=== PATIENT | female | born 1940 | race Caucasian/White ===

== ENCOUNTER 2016-10-06 17:25 | Observation (INO) | payer MEDICARE, MEDICAID ==
[2016-10-06 19:47] LABS: ABSOLUTE NEUTROPHIL COUNT 4.9 K/mm3 (1.8-7.7); BASO # 0.1 K/mm3 (0.0-0.2); BASO % 0.8 % (0.2-1.0); EOS # 0.2 (0.0-0.5); HEMATOCRIT 38.4 % (37.0-47.0); HEMOGLOBIN 11.8 gm/l (12.0-16.0); IMM NEUT% 0.3 % (0-1); LYMPH # 1.8 (1.0-4.8); LYMPH % 23.6 % (15-45); MEAN CELL VOLUME 92.3 fl (81.0-99.0); MEAN CORPUSCULAR HEMOGLOBIN 28.4 pg (27.0-31.0); MEAN CORPUSCULAR HGB CONC 30.7 g/dl (33.0-37.0); MEAN PLATELET VOLUME 9.3 fl (7.4-10.4); MONO # 0.6 (0.0-0.8); MONO % 7.8 % (4-12); NEUT % 64.5 % (43-75); PLATELET COUNT 259 K/mm3 (130-400); RED CELL DISTRIBUTION WIDTH 13.8 % (11.5-14.5)
[2016-10-06 19:57] LABS: ALB/GLOB RATIO 0.8 (>1.0); CALCIUM 10.4 mg/dL (8.6-10.3)
[2016-10-06 20:10] LABS: TROPONIN I 0.02 ng/ml (0.0-0.06)
[2016-10-06 20:14] LABS: CKMB ISOENZYME 0.9 ng/ml (0.6-6.3)
[2016-10-06] MEDS ORDERED: FUROSEMIDE 40 MG/4 ML VIAL ONE (21:06)
[2016-10-06] MEDS ORDERED: ACETAMINOPHEN 325 MG TABLET PO ONE (23:21)
[2016-10-06 23:24] VITALS: BMI 38.0
[2016-10-06] MEDS ORDERED: BISACODYL 5 MG TABLET.EC PO PRN (23:32)
[2016-10-06] MEDS ORDERED: BLISTEX LIPSTICK 1 EACH TP PRN (23:32)
[2016-10-06] MEDS ORDERED: MENTHOL/CETYLPYRD 1 EACH LOZENGE PO PRN (23:32)
[2016-10-06] MEDS ORDERED: SODIUM CHLORIDE 0.9% 100 ML IV PRN (23:32)
[2016-10-06] MEDS ORDERED: ACETAMINOPHEN 325 MG TABLET PO PRN (23:32)
[2016-10-06] MEDS ORDERED: MAGNESIUM HYDROXIDE 30 ML UDCUP PO PRN (23:32)
[2016-10-06] MEDS ORDERED: BISACODYL 10 MG SUP PR PRN (23:32)
[2016-10-06] MEDS ORDERED: RANITIDINE HCL 300 MG PO SCH (23:45)
[2016-10-06] MEDS ORDERED: ACETAMINOPHEN PO PRN (23:45)
[2016-10-06] MEDS ORDERED: HYDROCODONE PO PRN (23:45)
[2016-10-06] MEDS ORDERED: CLONAZEPAM 1 MG TABLET PO SCH (23:45)
[2016-10-07] MEDS ORDERED: HYDROCODONE/ACETAMINOPHEN 5/325MG TABLET PO PRN (00:16)
[2016-10-07] MEDS ORDERED: FAMOTIDINE 20 MG TABLET PO SCH (00:30)
[2016-10-07] MEDS: NYSTATIN CREAM 15 APPLIC/15 G TUBE TP SCH ×2 (00:33→11:24)
[2016-10-07] MEDS: GABAPENTIN 300 MG CAPSULE PO SCH ×2 (00:53→09:05)
[2016-10-07] MEDS: METOPROLOL TARTRATE 25 MG TABLET PO SCH ×2 (00:53→09:08)
[2016-10-07 06:31] LABS: HEMATOCRIT 38.2 % (37.0-47.0); HEMOGLOBIN 11.7 gm/l (12.0-16.0); MEAN CORPUSCULAR HEMOGLOBIN 27.9 pg (27.0-31.0); MEAN CORPUSCULAR HGB CONC 30.6 g/dl (33.0-37.0); RED CELL DISTRIBUTION WIDTH 13.7 % (11.5-14.5)
[2016-10-07 06:47] LABS: CALCIUM 8.9 mg/dL (8.6-10.3)
[2016-10-07 08:27] VITALS: BP 127/86
[2016-10-07] MEDS ORDERED: AMIODARONE HCL 200 MG TABLET PO SCH (09:00)
[2016-10-07] MEDS ORDERED: AMIODARONE HCL 200 MG PO SCH (09:00)
[2016-10-07] MEDS ORDERED: PANTOPRAZOLE 40 MG TABLET DR PO SCH (09:00)
[2016-10-07] MEDS ORDERED: POTASSIUM CHLORIDE 20 MEQ TAB.PRT.SR PO SCH (09:00)
[2016-10-07] MEDS ORDERED: ASPIRIN (ENTERIC COATED) 81 MG TABLET.EC PO SCH ×2 (09:00)
[2016-10-07] MEDS ORDERED: FUROSEMIDE 40 MG TABLET PO SCH (09:00)
[2016-10-07] MEDS ORDERED: DOCUSATE SODIUM 100 MG CAPSULE PO SCH (09:00)
[2016-10-07] MEDS ORDERED: OMEPRAZOLE 20 MG CAPSULE.DR PO SCH (09:00)
[2016-10-07] MEDS ORDERED: LISINOPRIL 5 MG TABLET PO SCH (09:00)
--- NOTE | 2016-10-07 09:15 | RAD ---
Exam: Two-view chest COMPARISON: CT 12/19/2015 INDICATION: Wheezing for 2 to 3 weeks with cough and difficulty breathing. FINDINGS: PA and lateral views of the chest were obtained. Cardiac silhouette is within normal limits. There is diffuse coarsening of the bronchovascular markings and mild bibasilar predominant interstitial disease. There is minor blunting of the costophrenic angles concerning for tiny bilateral pleural effusions. There is no focal airspace disease. Old left humerus fracture is seen. IMPRESSION: Diffuse coarsening of bronchovascular markings and mild bibasilar interstitial disease, as well as tiny bilateral pleural effusions. Although heart is not enlarged, findings are most compatible with a mild pulmonary edema. No radiographic evidence of pneumonia.
--- NOTE | 2016-10-07 10:03 | PDOC5 ---
ADMIT DATE: 10/06/16 DISCHARGE DATE: 10/07/16 ADMISSION DIAGNOSES: CHF Discharge Diagnoses: Acute on chronic CHF, Echo from 07/2014 with EF 60%, restrictive diastolic dysfunction, Left to Right shunt through PFO Hypertension CVA Anxiety Polyneuropathy Chronic Pain Paroxysmal Atrial fibrillation PROCEDURES PERFORMED THIS HOSPITALIZATION: none CONSULTATIONS: None HOSPITAL COURSE: This is a 76 year old female who presented tot he emergency department for wheezing which had been progressing for the previous day. She was evaluated and found to have an elevated BNP to 595, oxygen saturations in the low 90's and pedal edema. She was uncomfortable going home and was admitted to the hospital overnight for observation. She was provided with lasix and had relief of her shortness of breath and improvement in the pedal edema the next morning. She tolerated diet and was ambulatory without difficulties. She has an appointment with her PCP on 10/09/2016. - Exam Vital Signs Temperature 98.3 F 10/07/16 08:00 Pulse Rate 66 10/07/16 08:00 Respiratory Rate 20 10/07/16 08:08 Blood Pressure 127/86 10/07/16 08:00 O2 Saturation by Pulse Oximetry 97 10/07/16 08:05 Oxygen Delivery Method Room Air Oxygen Flow Rate 0 General: Alert, Oriented x3, Cooperative, Other (morbidly obese), No Acute Distress HEENT: Atraumatic, PERRLA, EOMI, Mucous membr. moist/pink Lungs: Clear to Auscultation Bilaterally, Normal Air Movement, Other (no crackle or wheeze, improved from overnight) Cardiovascular: Regular Rate and Rhythm, Normal S1, Normal S2 Abdomen: Soft, Mild Distention, No Rigid, No Tenderness, No Rebounding Extremities: Edema, Other (pedal), No Cyanosis, No Tenderness Peripheral Pulses: Radial (L): 2+, Radial (R): 2+, Posterior Tibialis (L): 2+, Posterior Tibialis (R): 2+ Neurological: Normal Speech Psych/Mental Status: Normal Mood - Results Laboratory 10/07/16 05:30 10/07/16 05:30 10/07/16 05:30 MCHC 30.6 L Laboratory Tests 10/06/16 19:10 CK-MB (CK-2) 0.9 Troponin I 0.02 B-Natriuretic Peptide 595 H Imaging Results: Diffuse coarsening of bronchovascular markings, mild bibasilar interstitial disease, tiny B/L pleural effusions. Findings compatible with mild pulmonary edema. No evidence of pneumonia. - Problems:Assessment/Plan (1) CHF exacerbation Qualifiers: Congestive heart failure type: combined Qualifier Code: (I50.43) Acute on chronic combined systolic (congestive) and diastolic (congestive) heart failure Status: Acute Assessment/Plan: acute on chronic, echo from 06/2016 not available. Echo from 07/2014 show restrictive diastolic dysfunction with EF of 60%, PFO with a left-right shunt. Improvement with lasix. (2) Hypertension Qualifiers: Hypertension type: essential hypertension Qualifier Code: (I10) Essential (primary) hypertension Status: Chronic Assessment/Plan: stable (3) Morbid obesity due to excess calories Status: Chronic Assessment/Plan: complicates medical care, may contribute to hypoventilation (4) CVD (cerebrovascular disease) Status: Chronic Assessment/Plan: H/O TIA in June 2016 with symptoms resolved (5) Patent foramen ovale with right to left shunt Status: Chronic Assessment/Plan: may contribute to CHF and symptoms (6) Polyneuropathy Status: Chronic Assessment/Plan: multifactorial including H/O diabetes, peripheral vascular disease (7) Afib Qualifiers: Atrial fibrillation type: paroxysmal Qualifier Code: (I48.0) Paroxysmal atrial fibrillation Status: Chronic Assessment/Plan: NSR currently - Discharge Plan Additional Instructions: Follow-up with Dr. Chang as previously scheduled on Saturday10/09/2016. Ask whether to continue with lasix Prescriptions: Potassium Chloride [K-DUR 20 MEQ SR TAB (SHF)] 20 meq PO DAILY #30 tab.prt.sr Furosemide [LASIX 40 MG TABLET (SHF)] 40 mg PO DAILY #30 tablet Condition: Stable Disposition: Home
--- NOTE | 2016-10-07 10:43 | HP ---
EVERTON ORDOÑEZ [id number] DATE OF : 1940 IDENTIFICATION: This is a 76-year-old female. CHIEF COMPLAINT: Shortness of breath. HISTORY OF PRESENT ILLNESS: Yesterday the patient developed wheezing., and she thought it would get better, but she had increasing shortness of breath overnight and through the day today. She lives with her son and he works nights and sleeps during the day. When he got up today, she told him she was short of breath and she needed to go to the emergency department. In the emergency department, she was found to have low oxygen saturations around 90% and had an elevated BNP indicating some heart failure. Patient is being admitted to the hospital overnight for the slight hypoxia and to help with diuresis. She has noticed increased swelling in her feet. Along with the shortness of breath, she has a cough and some increased swelling in her feet. PAST MEDICAL HISTORY: Includes: 1. Essential hypertension. 2. Anxiety. 3. Gastroesophageal reflux disease. 4. Hyperlipidemia. 5. Irritable bowel. 6. Osteoarthritis pain. 7. Neuropathy. 8. Restless legs. 9. Spinal stenosis of the lumbar spine. 10. She had a recent transient ischemic attack in June with resulting hypotension at that time. 11. Gout. PAST SURGICAL HISTORY: Includes: 1. Orthopedic procedure. 2. Appendectomy. 3. Cholecystectomy. 4. Hysterectomy. 5. Tonsillectomy. CURRENT MEDICATIONS: Include: 1. Aspirin. 2. Metoprolol. 3. Lisinopril. 4. Klonopin. 5. Vicodin. 6. Gabapentin. 7. Ranitidine. 8. Omeprazole. 9. Amiodarone. 10. B12. ALLERGIES: INCLUDE AMOXICILLIN, MORPHINE, NONSTEROIDAL ANTIINFLAMMATORIES, AND TRAMADOL. SOCIAL HISTORY: She lives with her son. She does not smoke. She is disabled and has a scooter. She previously worked as a health care provider, and a medical transcription. FAMILY HISTORY: Noncontributory at this time. REVIEW OF SYSTEMS: General: No fevers, or chills. HEENT: Chronic congestion. Cardiovascular: No chest pain, or pressure. Respiratory: Wheezing, increasing shortness of breath, cough. Abdomen: No nausea, vomiting, or abdominal pain. Musculoskeletal: Arthritis, chronic pain. Gout in her left big toe. Neurologic: She has numbness, and she currently has a headache. PHYSICAL EXAMINATION: VITAL SIGNS: Temperature is 98.2. She has a pulse of 77. Blood pressure is 178/107. She is saturating 94% on 1 L nasal cannula. GENERAL: Patient is alert and oriented not in acute distress. She is morbidly obese. HEENT: Normocephalic, atraumatic. No tenderness to palpation. Mucous membranes are moist. Pupils are equal, round and reactive. Her extraocular muscles are intact. There is no scleral icterus, or conjunctival injection. CARDIOVASCULAR: Regular. Positive S1, S2. She has palpable pulses bilaterally radially and PT. Bilateral trace peripheral edema in her lower extremities. RESPIRATORY: Respiratory is clear to auscultation bilaterally, decreased in the bases. No crackles, rhonchi, or wheezing. ABDOMEN: Soft, nontender. No distention or rebound. No guarding. MUSCULOSKELETAL: Moving extremities without difficulty. They are nontender to palpitation. Her left great metatarsophalangeal toe is erythematous and tender. NEUROLOGIC: She is alert and oriented. LABORATORY DATA: Patient has a white blood count of 7.6, hemoglobin 11.8, hematocrit 38.4, and a platelet count 259. VBG lactate is 0.8. Sodium is 142, potassium 2.9, chloride 108, carbon dioxide 29, BUN 16, creatinine 0.9. A CK-MB of 0.9 with a troponin of 0.02. A BNP of 595. DIAGNOSTIC IMAGING: Chest x-ray was obtained in the emergency department and it shows some pulmonary congestion with blunting of the costophrenic angle on the left. ASSESSMENT AND PLAN: This is a 76-year-old female with increasing shortness of breath over the past day without prior diagnosis of congestive heart failure, but with elevated BNP and peripheral edema, shortness of breath, and cough. We will treat her for congestive heart failure at this time. She was hospitalized in June of 2016 for a transient ischemic attack in [facility]. An echocardiogram was performed at that time, but the report is unavailable and we will try to obtain this. Prior echocardiogram was obtained in July of 2014 which showed an ejection fraction of 60%, restrictive diastolic dysfunction with a left to right shunt over patent foramen ovale. Stress test at that time showed right coronary artery ischemia. 1. Diastolic heart failure based on clinical presentation and lab values. We will continue diuresing and monitor her for symptom resolution. 2. Hypertension. She has not meds tonight. We will give her medications and monitor. 3. Gastroesophageal reflux disease. We will continue her home regimen of omeprazole in the morning and ranitidine in the evening. 4. Anxiety. She has Klonopin for sleep. 5. Gout. If she does not have relief with her hydrocodone, consider short prednisone burst. 6. For her neuropathy, we will continue her gabapentin. 7. If she does not have improvement and resolution of symptoms, and we cannot obtain her prior echocardiogram from June, we will repeat in one to two days. 8. I did have a discussion with the patient regarding her code status. She says her advanced directive says she is a Do Not Resuscitate. However, she verbalized to me that she does not want to be resuscitated. She does want CPR, but she does not want to be put on a ventilator and kept alive on machines. I explained to her that we cannot know that ahead of time. We do not know how patient's will do. I do not have a copy of her advanced directive currently available. So, we will proceed with CPR. DANIELLE/brendan Cc: Ann Chang
== END 2016-10-07 12:21 | disposition home or self-care (01) ==
LOC: ED 17:25 → INTOOBSV 21:47 → MS 21:47
PROVIDERS: ADMIT Family Medicine; ATTEND Family Medicine
DX: I11.0 Hypertensive heart disease with heart failure (principal); I50.33 Acute on chronic diastolic (congestive) heart failure; F41.9 Anxiety disorder, unspecified; K21.9 Gastro-esophageal reflux disease without esophagitis; E78.5 Hyperlipidemia, unspecified; K58.9 Irritable bowel syndrome, unspecified; M19.90 Unspecified osteoarthritis, unspecified site; G62.9 Polyneuropathy, unspecified; G25.81 Restless legs syndrome; M48.06 Spinal stenosis, lumbar region; M10.9 Gout, unspecified; Z66 Do not resuscitate
CPT/HCPCS: 83605; 83880; 85027; 85025; 82553; 87040; 80048; 80053; 84484; 36415; 71020; 97165; A9270 ×16; J1940; G8987; G8988; G8989

== ENCOUNTER 2016-10-30 16:03 | Outpatient (CLI) | payer MEDICARE, MEDICAID | END 2016-10-30 16:04 | disposition home or self-care (01) | LOC: NC 16:03 | PROVIDERS: ATTEND Family Medicine | DX: I50.43 Acute on chronic combined systolic (congestive) and diastolic (congestive) heart failure (principal); Z71.3 Dietary counseling and surveillance; Z68.35 Body mass index [BMI] 35.0-35.9, adult ==